=== PATIENT | male | born 1965 | race Caucasian/White ===

== ENCOUNTER → 2021-04-20 | Day surgery (SDC) | payer OTHER, MEDICARE ==
[~2021-04-20] VITALS: Ht 182.9 cm; Wt 79.4 kg
[~2021-04-20] MED LIST: ASPIRIN EC81 MG PO; COZAAR50 MG PO; CRESTOR20 MG PO; LEVEMIR VI100 UNITS/ SC; LEVOTHYROXINE50 MC1 PO; METFORMIN HCL500 MG PO; METOPROLOL TART25 MG PO; NORCO 5-325 TA1 EACH PO; ONDANSETRON ODT8 MG PO; OZEMPIC0.25 MG/0. SC; PROTONIX 40MG T40 MG PO
[2021-04-20 07:41] LABS: HCT 48.5 % (42.0-52.0); HGB 16.5 g/dl (13.2-18.0); MCH 29.2 pg (25.0-31.0); MCV 85.8 fL (78.0-100.0); MPV 10.2 fL (6.0-9.5); RBC 5.65 M/uL (4.70-6.00); RDW 14.9 % (11.5-14.0); WBC 7.1 K/uL (4.0-10.5)
[2021-04-20 08:02] LABS: ALBUMIN 4.2 g/dL (3.4-5.0); BILIRUBIN - TOTAL 1.4 mg/dL (0.2-1.0); BUN/CREAT RATIO (CALC) 27.3 RATIO; CREATININE 0.44 mg/dL (0.67-1.17); GLOBULIN (CALCULATION) 3.4 g/dL; POTASSIUM 4.2 mmol/L (3.5-5.1); TOTAL PROTEIN 7.6 g/dL (6.4-8.2)
== END | disposition home or self-care (01) ==
LOC: FAS 06:59
PROVIDERS: Surgery
DX: Z12.11 Encounter for screening for malignant neoplasm of colon (principal); K64.1 Second degree hemorrhoids; K64.4 Residual hemorrhoidal skin tags; G71.01 Duchenne or Becker muscular dystrophy; I10 Essential (primary) hypertension; E78.5 Hyperlipidemia, unspecified; E11.9 Type 2 diabetes mellitus without complications; E03.9 Hypothyroidism, unspecified; G35 Multiple sclerosis; Z80.0 Family history of malignant neoplasm of digestive organs; Z79.4 Long term (current) use of insulin; Z79.899 Other long term (current) drug therapy
CPT/HCPCS: 36415; 80053; J1100; J1610; J2250; J2704; J7120